=== PATIENT | male | born 1990 | race African-American/Black ===

== ENCOUNTER 2018-12-31 17:54 | Emergency (ER) | payer SELFPAY ==
[2018-12-31] MEDS ORDERED: AZITHROMYCIN 250 MG TABLET PO ONE (18:05)
--- NOTE | 2018-12-31 18:05 | PDOC ---
Rapid Medical Evaluation Time Seen by Provider: 12/31/18 18:03 Medical Evaluation: 12/31/18 18:04 I have performed a brief in-person evaluation of this patient. The patient presents with a chief complaint of: Requesting STD testing Pertinent physical exam findings:NAD I have ordered the following:UA CX, zithromax and rocephin GC The patient will proceed to the ED for further evaluation. Discharge Disposition - Diagnosis STD exposure - Referrals - Patient Instructions - Post Discharge Activity
[2018-12-31 18:06] VITALS: BP 131/71; PULSE 60; TEMP 98.1; BMI 25.0
[2018-12-31 19:15] LABS: URINE APPEARANCE CLEAR; URINE BILIRUBIN NEGATIVE (<2.0 mg/dL); URINE COLOR LTYELLOW; URINE GLUCOSE (UA) NEGATIVE (NEGATIVE); URINE KETONE NEGATIVE (NEGATIVE); URINE LEUK ESTERASE NEGATIVE (NEGATIVE); URINE NITRITE NEGATIVE (NEGATIVE); URINE PROTEIN NEGATIVE (NEGATIVE); URINE UROBILINOGEN NEGATIVE mg/dL (0.2-1.0)
--- NOTE | 2018-12-31 19:50 | PDOC ---
*Physical Exam - Vital Signs Last Vital Signs Temp Pulse Resp BP Pulse Ox 98.1 F 60 19 131/71 100 12/31/18 18:04 12/31/18 18:04 12/31/18 18:04 12/31/18 18:04 12/31/18 18:04 ED Treatment Course - ADDITIONAL ORDERS Additional order review: Laboratory Results 12/31/18 18:36 Urine Color Ltyellow Urine Appearance Clear Urine pH 7.0 Ur Specific [place] 1.020 Urine Protein Negative Urine Glucose (UA) Negative Urine Ketones Negative Urine Blood Negative Urine Nitrite Negative Urine Bilirubin Negative Urine Urobilinogen Negative Ur Leukocyte Esterase Negative Medical Decision Making - Medical Decision Making 12/31/18 19:50 Patient seen by the advanced practice provider under my direct supervision. Ancillary testing reviewed as necessary. I agree with plan as outlined by the advanced practice provider. *DC/Admit/Observation/Transfer Diagnosis at time of Disposition: STD exposure - Discharge Dispostion Disposition: HOME - Referrals Referrals: [facility] [Outside] - Patient Instructions Printed Discharge Instructions: How to Detect and Treat STDs Additional Instructions: no sex for 1 week. your partner should be tested again. follow up with your doctor - Post Discharge Activity
--- NOTE | 2018-12-31 20:25 | PDOC ---
History of Present Illness - General Chief Complaint: Penile Drainage Stated Complaint: std Time Seen by Provider: 12/31/18 18:03 History Source: Patient - History of Present Illness Initial Comments: 12/31/18 20:20 28 year old male c/o exposure to STD from girl friend who was treated. as per patient girl friend + gonorrhea. denies penile discharge, unhealing lesions, testicular pain or urinary symptoms Past History - Past Medical History Allergies/Adverse Reactions: Allergies Allergy/AdvReac Type Severity Reaction Status Date / Time No Known Allergies Allergy Verified 12/31/18 18:06 COPD: No - Suicide/Smoking/Psychosocial Hx Smoking History: Never smoked Information on smoking cessation initiated: No Hx Alcohol Use: No Drug/Substance Use Hx: No Review of Systems - Review of Systems Able to Perform ROS?: Yes Is the patient limited Thai proficient: No Constitutional: No: Symptoms Reported, See HPI, Chills, Diaphoresis, Fever, Loss of Appetite, Malaise, Night Sweats, Weakness, Weight Stable, Unintentional Wgt. Loss, Unexplained wgt Loss, Other : No: Symptoms Reported, See HPI, Burning, Dysuria, Discharge, Frequency, Flank Pain, Hematuria, Incontinence, Pain, Urgency, Testicular Mass, Testicular Swelling, Lesions, Testicular Pain, Other *Physical Exam - Vital Signs Last Vital Signs Temp Pulse Resp BP Pulse Ox 98.1 F 60 19 131/71 100 12/31/18 18:04 12/31/18 18:04 12/31/18 18:04 12/31/18 18:04 12/31/18 18:04 - Physical Exam General Appearance: Yes: Appropriately Dressed Respiratory/Chest: positive: Lungs Clear, Normal Breath Sounds Gastrointestinal/Abdominal: positive: Normal Bowel Sounds, Soft Male Genitalia: positive: normal genitalia. negative: testicular tenderness, epididymus tender, inguinal hernia Moderate Sedation - Procedure Monitoring Vital Signs: Procedure Monitoring Vital Signs Temperature 98.1 F 12/31/18 18:04 Pulse Rate 60 12/31/18 18:04 Respiratory Rate 19 12/31/18 18:04 Blood Pressure 131/71 12/31/18 18:04 O2 Sat by Pulse Oximetry (%) 100 12/31/18 18:04 ED Treatment Course - ADDITIONAL ORDERS Additional order review: Laboratory Results 12/31/18 18:36 Urine Color Ltyellow Urine Appearance Clear Urine pH 7.0 Ur Specific [place] 1.020 Urine Protein Negative Urine Glucose (UA) Negative Urine Ketones Negative Urine Blood Negative Urine Nitrite Negative Urine Bilirubin Negative Urine Urobilinogen Negative Ur Leukocyte Esterase Negative *DC/Admit/Observation/Transfer Diagnosis at time of Disposition: STD exposure - Discharge Dispostion Disposition: HOME - Referrals Referrals: [facility] [Outside] - Patient Instructions Printed Discharge Instructions: How to Detect and Treat STDs Additional Instructions: no sex for 1 week. your partner should be tested again. follow up with your doctor - Post Discharge Activity
[2018-12-31] MEDS ORDERED: AZITHROMYCIN 250 MG TABLET ONE (20:30)
[2018-12-31] MEDS ORDERED: cefTRIAXone SODIUM 1 GM VIAL ONE (20:30)
[2018-12-31] MEDS ORDERED: LIDOCAINE HCL 1%, 10 MG/ML (20ML VIAL) ONE (20:32)
== END 2018-12-31 20:41 | disposition home or self-care (01) ==
LOC: JER 17:54 → JERFT 17:54 → JER 20:41
DX: Z11.3 Encounter for screening for infections with a predominantly sexual mode of transmission (principal)
CPT/HCPCS: 36415; 81003; 87086; 87491; 87591; 99282-25